=== PATIENT | female | born 1985 ===

== ENCOUNTER 2024-10-30 13:01 | Outpatient (AMB) | payer OTHER, SELFPAY ==
--- NOTE | 2024-10-30 13:15 | MHC.PC.OV ---
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 She has a hx of anxety, depression. She is currently 34 weeks . HEENT: States that about 2 weeks ago she had sinus congestion, postnasal drip, slight cough and just generally felt unwell. She was seen in an urgent care and diagnosed with a viral syndrome and also told that she had [id number]. She states that she did have some sores in the mouth and on the hands which have fully resolved. She says that she is still somewhat sick but a lot better. She has some nasal congestion and sinus congestion but no pain, fevers or chills. No cough. Feeling well enough to go back to work. No shortness on breath, nausea or vomiting. Psych: She was previously on wellbutrin and that was effective. She stopped due to preganancy. She states in the past tried SSRIs and that made depression worse. She states that once a year or twice she would get lorazepam to be taken prn panic. 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 She is currently 34 weeks with a girl. 3 teenage boys at home. [facility] Surgical History (Updated 10/30/24 @ 13:30 by Kiki Sepulveda CMA) No pertinent past surgical history Family History (Updated 10/30/24 @ 13:33 by Kiki Sepulveda CMA) Mother Asthma Cardiovascular disease Alcoholism Thyroid disorder Cancer Sister Asthma Maternal Grandmother Hypertension Diabetes Alcoholism Thyroid disorder Cancer Paternal Grandfather Diabetes Paternal Grandmother Thyroid disorder Diabetes Breast cancer Other FHx: mental illness Substance abuse Social History (Updated 10/30/24 @ 13:34 by Kiki Sepulveda CMA) Housing: Condominium Housing Other:: Moving to a house. Alcohol intake: former Patient Tobacco Use Status: Former Tobacco user Cigarette Packs Per Day: 1 Cigarettes Per Day: 5 Years Smoked: 6 e-Cigarette/Vaping Use: Never Used service: No Current occupational status: employed Current occupation: [employer] Current occupational exposures/hazards: Yes Cognitive needs: No Hearing needs: No Vision needs: No Questionnaire PHQ-9 Over the last 2 weeks, how often have you been bothered by any of the following problems? 1. Little interest or pleasure in doing things: not at all 2. Feeling down, depressed, or hopeless: not at all 3. Trouble falling or staying asleep, or sleeping too much: not at all 4. Feeling tired or having little energy: not at all 5. Poor appetite or overeating: not at all 6. Feeling bad about yourself - or that you are a failure or have let yourself or your family down: not at all 7. Trouble concentrating on things, such as reading the newspaper or watching television: not at all 8. Moving or speaking so slowly that other people could have noticed. Or the opposite - being so fidgety or restless that you have been moving around a lot more than usual: not at all 9. Thoughts that you would be better off or of hurting yourself in some way: not at all Total score: 0 Depression Screening Interpretation: Negative Depression Screening Done: Yes 30503 - PHQ-9 Billing: Yes Source: Developed by Drs. Xavi Macario, Jaye Neri, Leonidas Madsen and colleagues, with an educational michelle from [employer]. Thrive Questionnaire Date Thrive assessed: 10/30/24 I am a: Patient What is your living situation today?: I have a steady place to live Within the past 12 months, did the food you bought not last and you didn't have the money to get more?: Never true Within the past 12 months, did you worry whether your food would run out before you got money to buy more?: Never true Do you have trouble paying for medicines?: No Do you have trouble getting transportation to medical appointments?: No Do you have trouble paying your heating and electricity bill?: No Do you have trouble taking care of your child, family member or friend?: No Do you have trouble with day-to-day activities such as bathing, preparing meals, shopping, managing finances, etc.?: No Are you currently unemployed and looking for a job?: No Are you interested in more education?: No Please select the resources that you would like help with: None Currently or been in a relationship where the following occur: No concerns reported THRIVE Score: 0 AUDIT C Alcohol Use Questionnaire (AUDIT-C) 1. How often do you have a drink containing alcohol?: Never 3. How often do you have six or more drinks on one occasion?: Never Total Score: 0 JACI-7 AMB Questionnaire JACI-7 Date JACI - 7 assessed: 10/30/24 Feeling nervous, anxious, or on edge: 0 = Not at all Not being able to stop or control worryin = Not at all Worrying too much about different things: 0 = Not at all Trouble relaxin = Not at all Being so restless that it is hard to sit still: 0 = Not at all Becoming easily annoyed or irritable: 0 = Not at all Feeling afraid as if something awful might happen: 0 = Not at all Total JACI-7 score (0-4 normal; 5-9 mild; 10-14 moderate; 15-21 severe): 0 Source: Developed by Drs. Xavi Macario, Jaye Neri, Leonidas Madsen and colleagues, with an educational michelle from [employer]. JACI-7 Assessment Billing JACI-7 Assessment Tool: JACI-7 Assessment 18525 Physical exam (Primary Care) Vital Signs: Last Vital Signs Temp 97.9 F 10/30/24 13:26 Pulse 111 H 10/30/24 13:26 Resp 14 10/30/24 13:26 BP 124/64 10/30/24 13:26 Pulse Ox 98 10/30/24 13:26 BMI result Body Mass Index 30.9 Tobacco/Smoking Status: Tobacco use Status Tobacco use date assessed 10/30/24 10/30/24 13:25 Patient Tobacco Use Status Former Tobacco user 10/30/24 13:34 e-Cigarette/Vaping Use Never Used 10/30/24 13:34 PHQ-9: PHQ-9 Score PHQ-9: Total score 0 10/30/24 13:54 Depression Screening Interpretation: Negative Thrive Assessment: Date of Thrive Assessment Date Thrive assessed 10/30/24 10/30/24 13:17 Currently or been in a relationship where the following occur: No concerns reported Const Orientation/consciousness: patient oriented x3 HENMT Ears: hearing grossly normal bilaterally General nose exam: Normal nasal mucous membranes and turbinates present Mouth: Normal oral and palatal mucosa present and moist mucous membranes Throat: Yes posterior oropharynx normal and Yes uvula midline Neck Thyroid: Thyroid normal Lymphatic: no lymphadenopathy noted Resp Auscultation: clear to auscultation bilaterally Cardio Rate: regular rate Rhythm: regular rhythm Heart sounds: S1 normal heart sound present and S2 normal heart sound present Skin General skin exam: no rashes or lesions noted Neuro General: patient oriented x3, gait normal and no focal motor deficits Coding Level of Care Code New Pt Level 3 (94375) Complex EM visit Add On G2211 Diagnoses Viral upper respiratory tract infection J06.9 Anxiety with depression F41.8 34 weeks gestation of Z3A.34 Additional Codes JACI-7 Assessment Billing - JACI-7 Assessment Tool: JACI-7 Assessment 93816 ([id number]) PHQ-9 - 20720 - PHQ-9 Billing: Yes ([id number]) Assessment & Plan Assessment & Plan (1) Viral upper respiratory tract infection: Code(s): J06.9 - Acute upper respiratory infection, unspecified Plan: Resolved. Work letter provided Advised patient to return for a physical exam (2) Anxiety with depression: Code(s): F41.8 - Other specified anxiety disorders Category: Medical Plan: Currently stable and well-controlled. She will let me know if anything changes (3) 34 weeks gestation of : Code(s): Z3A.34 - 34 weeks gestation of Plan: Following with [facility] director call Orders: Orders Complete Blood Count Auto Diff 10/30/24 J06.9 - Acute upper respiratory infection, unspecified, Z00.00 - Encounter for general adult medical examination without abnormal findings Lipid Panel 10/30/24 J06.9 - Acute upper respiratory infection, unspecified, Z00.00 - Encounter for general adult medical examination without abnormal findings TSH reflex Free T4 10/30/24 J06.9 - Acute upper respiratory infection, unspecified, Z00.00 - Encounter for general adult medical examination without abnormal findings Microalbumin, Random (w Creat) 10/30/24 J06. - Acute upper respiratory infection, unspecified, Z00.00 - Encounter for general adult medical examination without abnormal findings Comprehensive [place]. Panel Fast 10/30/24 J06.9 - Acute upper respiratory infection, unspecified, Z00.00 - Encounter for general adult medical examination without abnormal findings Hemoglobin A1c 10/30/24 J06.9 - Acute upper respiratory infection, unspecified, R73.01 - Impaired fasting glucose, Z00.00 - Encounter for general adult medical examination without abnormal findings
[2024-10-30 13:26] VITALS: BP 124/64; PULSE 111; RESP 14; TEMP 36.6; O2SAT 98; BMI 30.9
== END 2024-10-30 14:06 | disposition home or self-care (01) ==
LOC: HO.HMCFM 13:01
PROVIDERS: PCP Physician Assistant; Visit Provider Physician Assistant
DX: J06.9 Acute upper respiratory infection, unspecified (principal); F41.8 Other specified anxiety disorders; Z3A.34 34 weeks gestation of pregnancy

== ENCOUNTER → 2024-10-30 13:01 | Outpatient (BNVA) | payer OTHER, SELFPAY | PROVIDERS: PCP Physician Assistant; Visit Provider Physician Assistant | DX: O99.343 Other mental disorders complicating pregnancy, third trimester (principal); O26.893 Other specified pregnancy related conditions, third trimester; F41.8 Other specified anxiety disorders; J06.9 Acute upper respiratory infection, unspecified; Z3A.34 34 weeks gestation of pregnancy; Z79.899 Other long term (current) drug therapy | CPT/HCPCS: 96127 ==